=== PATIENT | female | born 1950 | race Two or more races ===

== ENCOUNTER 2020-02-28 13:38 | Outpatient (CLI) | payer MEDICARE, BC | END 2020-02-28 23:59 | disposition home or self-care (01) | LOC: WOU 13:38 | PROVIDERS: ATTEND Surgery | DX: S51.812A Laceration without foreign body of left forearm, initial encounter (principal); W26.8XXA Contact with other sharp object(s), not elsewhere classified, initial encounter; Y92.009 Unspecified place in unspecified non-institutional (private) residence as the place of occurrence of the external cause | CPT/HCPCS: G0463 ==

== ENCOUNTER 2020-03-12 10:30 | Outpatient (CLI) | payer MEDICARE, BC | END 2020-03-12 23:59 | disposition home or self-care (01) | LOC: WOU 10:30 | PROVIDERS: ATTEND Surgery | DX: S51.812D Laceration without foreign body of left forearm, subsequent encounter (principal); W26.8XXD Contact with other sharp object(s), not elsewhere classified, subsequent encounter | CPT/HCPCS: G0463 ==